=== PATIENT | male | born 1940 | race Caucasian/White ===

== ENCOUNTER 2016-07-30 11:46 | Day surgery (SDC) | payer MEDICARE ==
[~2016-07-30] VITALS: Ht 182.9 cm; Wt 95.0 kg
[2016-07-30] MEDS ORDERED: LACTATED RINGERS 1,000 ML IV SCH (12:20)
[2016-07-30 12:51] VITALS: BP 126/73
[2016-07-30] MEDS ORDERED: ASPI-496 PO (12:51)
[2016-07-30] MEDS ORDERED: MULT-257 PO (12:51)
[2016-07-30] MEDS ORDERED: CHOL5000 PO (12:51)
[2016-07-30] MEDS ORDERED: CYAN10005 PO (12:51)
[2016-07-30] MEDS ORDERED: CEFAZOLIN 1,000 MG ONE (13:43)
[2016-07-30] MEDS ORDERED: PROPOFOL 10 MG/ML, 20ML ONE (13:43)
[2016-07-30] MEDS ORDERED: FENTANYL PF 100 MCG/2ML ONE ×2 (13:52→15:06)
[2016-07-30] MEDS ORDERED: BUPIVACAINE/PF-EPI 0.5% 1:200K INFIL ONE (13:53)
[2016-07-30] MEDS ORDERED: BACITRACIN 50,000 UNIT IRRIG ONE (14:23)
[2016-07-30] MEDS ORDERED: HYDROmorphone 1 MG/ML, 1ML IV PRN (14:30)
[2016-07-30] MEDS ORDERED: LABETALOL 5MG/ML, 20ML IV PRN (14:30)
[2016-07-30] MEDS ORDERED: hydrALAzine 20 MG/ML, 1ML IV PRN (14:30)
[2016-07-30] MEDS ORDERED: OXYcodone 5 MG/5 ML ORAL.SOL UDC PO PRN (14:30)
[2016-07-30] MEDS ORDERED: ONDANSETRON 2MG/ML, 2ML IVPush PRN (14:30)
[2016-07-30] MEDS ORDERED: OXYcodone 5 MG/5 ML ORAL.SOL UDC ONE (15:06)
[2016-07-30] MEDS: FENTANYL PF 100 MCG/2ML IV PRN ×2 (15:14→15:27)
== END 2016-07-30 16:50 | disposition home or self-care (01) ==
LOC: OUT 11:46
PROVIDERS: ATTEND Orthopaedic Surgery
DX: G56.01 Carpal tunnel syndrome, right upper limb (principal); M65.88 Other synovitis and tenosynovitis, other site; S63.591A Other specified sprain of right wrist, initial encounter; M71.331 Other bursal cyst, right wrist; Z87.891 Personal history of nicotine dependence; Z91.018 Allergy to other foods; X58.XXXA Exposure to other specified factors, initial encounter; Y93.9 Activity, unspecified; Y92.9 Unspecified place or not applicable; Y99.9 Unspecified external cause status
CPT/HCPCS: 25115; 64721; 88304; 93005; C1763; J0690; J2704; J3010; J7120